=== PATIENT | female | born 1980 | race Caucasian/White ===

== ENCOUNTER 2024-07-29 13:22 | Emergency (ER) | payer OTHER ==
[~2024-07-29] VITALS: Ht 172.7 cm; Wt 75.0 kg
[~2024-07-29 13:22] MED LIST: ASPI-1160 PO; LIP40 PO; METO25TA6 PO
[2024-07-29 13:24] VITALS: BP 103/63; PULSE 100; RESP 18; TEMP 36.7; O2SAT 98
[2024-07-29] MEDS ORDERED: SODIUM CHLORIDE 0.9% 1,000 ML IV ONE (14:00)
== END 2024-07-29 14:21 | disposition left against medical advice (07) ==
LOC: ER 13:22
DX: I47.10 Supraventricular tachycardia, unspecified (principal); F17.200 Nicotine dependence, unspecified, uncomplicated; F15.10 Other stimulant abuse, uncomplicated; Z79.82 Long term (current) use of aspirin; Z98.890 Other specified postprocedural states
CPT/HCPCS: 99283; 93005; J7030

== ENCOUNTER 2024-08-28 14:49 | Emergency (ER) | payer OTHER ==
[~2024-08-28] VITALS: Ht 177.8 cm; Wt 115.0 kg
[2024-08-28 14:54] VITALS: O2SAT 99
[2024-08-28 18:37] VITALS: TEMP 36.7
[2024-08-28] MEDS ORDERED: NALO4SPR BOTHNSTRLS (19:48)
[2024-08-28 20:39] VITALS: BP 129/78; PULSE 82; RESP 32; O2SAT 98
== END 2024-08-28 21:14 | disposition home or self-care (01) ==
LOC: ER 14:49
DX: T40.601A Poisoning by unspecified narcotics, accidental (unintentional), initial encounter (principal); F17.200 Nicotine dependence, unspecified, uncomplicated; F19.11 Other psychoactive substance abuse, in remission; Z79.82 Long term (current) use of aspirin; Z79.899 Other long term (current) drug therapy; Y92.89 Other specified places as the place of occurrence of the external cause
CPT/HCPCS: 99285; Z7610 ×2